=== PATIENT | female | born 1985 | race Caucasian/White ===

== ENCOUNTER 2016-09-03 13:45 | Inpatient (IN) | payer OTHER ==
[~2016-09-03] VITALS: Ht 165.1 cm; Wt 79.4 kg
[~2016-09-03 13:45] MED LIST: PRILOSEC OTC20 M1 PO
[2016-09-03 15:22] LABS: ABSOLUTE EOSINOPHIL COUNT 0 /CUMM (0.0-0.7); ABSOLUTE GRANULOCYTE CT 12.1 /CUMM (1.4-6.5); ABSOLUTE MONOCYTE COUNT 1.1 /CUMM (0.10-0.60); HEMATOCRIT 40.8 % (37-47); MEAN CORPUSCULAR HGB 30.5 PG (27.0-31.0); MEAN CORPUSCULAR VOLUME 92.3 FL (81.0-99.0); PLATELET COUNT 196 /CUMM (130-400); RBC DISTRIBUTION WIDTH 13.5 % (11.5-14.5); RED BLOOD CELL CT 4.42 /CUMM (4.20-5.40); WHITE BLOOD CELL COUNT 15.3 /CUMM (4.8-10.8)
[2016-09-03 15:24] LABS: ABSOLUTE BASOPHIL COUNT 0 /CUMM (0.0-0.2); BASOPHIL % 0.3 % (0.0-2.0); EOSINOPHIL % 0.1 % (0-5)
[2016-09-03] MEDS ORDERED: PRENATAL TABLE1 EAC2 PO (15:59)
--- NOTE | 2016-09-03 16:13 | History & Physical ---
General Information and HPI MD Statement: I have seen and personally examined NEEMA TOMPKINS and documented this H&P. The patient is a 30 year old female at [39] weeks and [2] days gestation who presented with a chief complaint of [onset of labor]. Source of Information: patient, old records Exam Limitations: no limitations History of Present Illness: 30 YO, LMP 12/02/2016 BALA 09/08/2016 IS ADMITTED 39 2/7 IN ACTIVE LABOR. NO SROM NO VAGINAL BLEEDING + GFM ISSUES FOR THIS : 1.) interstiial cystitis - DR Scott urologist 2.) Carecare worker - parvo NON-Immune 3.) Gr b str + 4.) Pertussus side-effect "seizures" Allergies/Medications Allergies: Coded Allergies: Pertussis Vaccines (Severe, 09/03/16) Home Med list Omeprazole Magnesium (Prilosec Otc) 20 MG TABLET. 1 TAB PO QDAY GASTRITIS Vit No.130/Iron/FA ( Tablet) 27 MG IRON-800 MCG TABLET 1 TAB PO DAILY vitamin support (Reported) Compliance With Home Meds: GOOD Past History box toe cutter History : 1 Para: 0 Last Menstrual Period: 12/02/2016 Estimated Delivery Date: 09/08/2016 Past box toe cutter History: none Medical History Blood Transfusion Hx: No Neurological: NONE EENT: sinus headaches Cardiovascular: NONE Respiratory: NONE Gastrointestinal: NONE Hepatic: NONE Renal: INTERSTITIAL CYSTITIS Musculoskeletal: NONE Psychiatric: NONE Endocrine: NONE Blood Disorders: NONE Cancer(s): NONE TRAIN ENGINEER/Reproductive: NONE Surgical History Pertinent Surgical History: N Past Family/Social History Family History Relations & Conditions if any Relation not specified for: *No pertinent family history Psychosocial History Where do you live? Home Who Do You Live With? spouse Primary Language: Nauruan Smoking Status: Never Smoked ETOH Use: denies use Illicit Drug Use: denies illicit drug use Review of Systems Review of Systems: Neg for carg\\diac, Pulmonary GI complaints Exam & Diagnostic Data Last 24 Hrs of Vital Signs/I&O T Max 98.6 P 84 R16 BP 128/72 P02 99% RA Intake & Output 09/03 1600 03/10 0800 09/03 0000 Intake Total Output Total Balance Patient 175 lb Weight Obstetric Exam Wgt Gained During : 38 Pelvimetry: should be adequate for avge sized baby Dilation (cm): 5 Effacement (%): 100 Station: 0 Membranes: intact Fluid: unknown Fundal Height (cm): 38 Multiple Gestation? No Contractions: Q 2-3 Infant #1 - FHR Baseline: 14 Category: 1 Estimated Weight: 7# 6oz Presentation: VTX Patient for Induction? No León Score León Score Response Value Cervix Position: mid-position 1 Cervix Consistency: soft 2 Cervix Effacement: >80% 3 Cervix Dilation: >5 cm 3 Cervix Station: +1,+2 3 Total 12 Physical Exam General Appearance Alert, Oriented X3, Cooperative, Moderate Distress Skin No Significant Lesion Cardiovascular Regular Rate Lungs Normal Air Movement Abdomen Normal Bowel Sounds, Soft, No Tenderness, No Hepatospenomegaly, Fundal Height 38 cm EFWt 7#6oz FHR 140's Cat I uterus nontender Neurological Normal Gait, Normal Speech Extremities No Tenderness/Swelling Reproductive (FEMALE) Normal female genitalia Labs Blood Type & Rh: A + Antibody Screen: N Hct/Hgb & Platelets #1: 13/38.9 240,000 Hct/Hgb & Platelets #2: 11.3/35.2 229,000 Rubella: IMM VDRL #1: N VDRL #2: N HbsAg: N HIV #1: N HIV #2 N 1 Hr P 3 Hr PG: N/A Group B Strep: POS Initial Ultrasound: 01/29/2016 S=D=U/S @ 8 / Anatomy Ultrasound: 04/22/2017 S=D=U/S @ 20 WKS NL ANATOMYPOST PLAC 3 VC, MALE Ultrasound for EFW: 08/25/2016 S=D=U/S 45% 7# Genetic Testing: DECLINED ALL TESTING Last 24 Hrs of Labs/Miguel: Laboratory Tests 09/03/16 1449: CBC w Diff NO MAN DIFF REQ, RBC 4.42, MCV 92.3, MCH 30.5, RDW 13.5, MPV 9.0, Gran % 79.0 H, Lymphocytes % 13.4 L, Monocytes % 7.2, Eosinophils % 0.1, Basophils % 0.3, Absolute Granulocytes 12.1 H, Absolute Lymphocytes 2.0, Absolute Monocytes 1.1 H, Absolute Eosinophils 0, Absolute Basophils 0, PUBS MCHC 33.0 09/03/16 1400: Urine Color YEL, Urine Clarity CLEAR, Urine pH 6.0, Ur Specific [place] 1.010, Urine Protein NEG, Urine Ketones NEG, Urine Nitrite NEG, Urine Bilirubin NEG, Urine Urobilinogen 0.2, Ur Leukocyte Esterase TRACE H, Ur Microscopic SEDIMENT EXAMINED, Urine WBC RARE, Ur Epithelial Cells FEW, Urine Bacteria FEW H, Urine Hemoglobin NEG, Urine Glucose NEG Assessment/Plan Assessment/Plan: IUP @ 39 2/7 IN ACTIVE LABOR- NL SIZED BABY. GOOD PROGRESS TO 5 CM. CAT 1 FHR GR B STR + PLAN IVF, PCN PROTOCAL, EPIDURAL ANTICIPATE As Ranked By This Provider Problem List: 1. 2. Active labor at term 3. Group B streptococcal carriage complicating Core Measures/Miscellaneous Venous Thromboembolism VTE Risk Factors: / VTE Contraindications: Active Bleeding (FALL RISK) VTE Diagnosis: No Beta Nestor Is Beta Nestor a Home Med? No If No, Why Not? N/A Antibiotics Is Patient on Antibiotics? Yes If Yes: prophylaxis Attending MD Review Statement Attending Statement Attending MD Statement: examined this patient, discussed with family, reviewed EMR data (avail), discussed w/nursing Attending Assessment/Plan: Savi JAUREGUI MD
--- NOTE | 2016-09-04 00:40 | Labor & Delivery Summary ---
Delivery Summary Vaginal Delivery: Vaginal: VACUUM ASSIST X3 (NO POP OFF) CTXN TO THEN VERTEX SPONTANEOUS Episiotomy/Lacerations: Episiotomy/Lacerations: EPISIOTOMY Type: MIDLINE PARTIAL 3RD DEGREE Repair: 3-0 VICRYL Anesthesia: EPIDURAL / LOCAL Placenta: Placenta: spontanteous, normal, 3 vessel Anesthesia: EPIDURAL Cord PH Value: ART 7.10 PCO2 28, PO2 26, HCO3 8.5, BE -19.8 HOLLY 7.14 PCO2 37, PO2 28, HCO3 12, BE -15.9 Baby's Weight: Male Doug Wylie 8#2oz 3670 gms Apgars - 1 Min: 9 Apgars - 5 Min: 9 Additional Comments: Pt progressed well to fully dilated, at 22:23. FHR @ that time was baseline 130- 140 with accellerations to 150 to 160 BPM. The patient stated that she was experiencing rectal pressure, after she was noted to be fully dilated, so pt began pushing soon after. With initial pushing, FHR now had a baseline ranging from 140's to 150' with average variability, moderate variable decells to 70 to 110, lasting 40 to 65 seconds, then overshoot to 160 to 170 bpm. After 23:10, we had a raising baseline to 160- 170's with elevations into the 180's. Variable decellerations remained in the severe category and were occuring with each contraction. (Pt had been maintained w/ O2 by mask, hip wedge and periodic IVF boluses during the end of the 1st stage of labor and through out the second stage of labor.) Pediatric coverage was called to come in for the delivery and anesthesia was alerted to come to the unit. The VTX had a large caput that was distending the introutis with pushing- bony VTX remaining @ +2/ +3 station. Pt was beoming frustrated and exhausted. @ 23:30 once BRANDON Mcduffie, was persent in the room, I discussed with the patient and her family that we needed to expedite the delivery by using a vaccum extractor. Pt preferred to try to avoid cesarian section, and was willing to try a vacuum assist. She was informed of and agreed to an episiotomy. (C/S room was already set up, in case a cesarian delivery was needed). With the next 3 contractions the vacuum was applied to the vertex, and pressure was applied. NO Pop-offs occurred. The pressure of the vaccum was released betwwen the contractions. Caput was . second degree midline episiotomy was cut, after infiltration with local anesthetic. Pt was then urged to push even more forcefully. Pt then had a of a LV male infant @ 23:41. second degree episiotomy had a partial 3rd degree extension with the delivery. No nuchal cord, no shoulder dystocia @ delivery. Terminal mec was noted as the lower torso was delivered. Baby had cord clamped and cut and the baby was handed to the TONSORIAL ARTIST. WT 8#2oz, 3670gms APGARs 9/9/9. Anesthesia topped off the epidural, local anesthetic was injection into the perineal area. Layered repair of the partial 3rd degree episiotomy and extension was undertaken. No vaginal or cervical lacerations. Placenta spontaneously delivered intact NL configuration 3 VC @ 23:43. NO PP uterine atony Correct needle and instrument counts, sponge count correct and scanned appropriately. EBL 450 ml Doug Wylie RH + Immune pH Art 7.10 (Hco3 3.5, BE -19.8) pH Holly 7.14 (hco3 12, BE -15.9) Sidra Reid MD
[2016-09-04 04:57] VITALS: BP 110/64
[2016-09-04 09:06] LABS: ABSOLUTE BASOPHIL COUNT 0 /CUMM (0.0-0.2); ABSOLUTE EOSINOPHIL COUNT 0 /CUMM (0.0-0.7); ABSOLUTE GRANULOCYTE CT 18.7 /CUMM (1.4-6.5); ABSOLUTE LYMPH COUNT 1.9 /CUMM (1.2-3.4); ABSOLUTE MONOCYTE COUNT 1.6 /CUMM (0.10-0.60); BASOPHIL % 0.2 % (0.0-2.0); EOSINOPHIL % 0 % (0-5); GRANULOCYTE % 84.2 % (42.2-75.2); MEAN CORPUSCULAR HGB 30.6 PG (27.0-31.0); MEAN CORPUSCULAR HGB CONC 33.3 G/DL (33.0-37.0); MEAN PLATELET VOLUME 9.4 FL (7.4-10.4); PLATELET COUNT 171 /CUMM (130-400); RBC DISTRIBUTION WIDTH 13.8 % (11.5-14.5); RED BLOOD CELL CT 4.02 /CUMM (4.20-5.40); WHITE BLOOD CELL COUNT 22.2 /CUMM (4.8-10.8)
[2016-09-04] MEDS ORDERED: DOCUSATE SODIU100 M3 PO (09:10)
[2016-09-04] MEDS ORDERED: IBUPROFEN800 M1 PO (09:10)
--- NOTE | 2016-09-04 10:01 | PN- Post Delivery/GYN ---
Subjective Subjective: Overall is doing well- is generally sore- no severe pain. Voiding fine. No heavy lochia. Baby not latching well this am, discussed w/ pt - best to leave the circumcision until in the am Review of Systems: Neg for cardiac, pulmonary GI complaints Objective Last 24 Hrs of Vital Signs/I&O TMax 100.0 now 99.1 VSS Vital Signs Date Time Temp Pulse Resp B/P Pulse O2 O2 Flow FiO2 Ox Delivery Rate 09/04 0457 110/64 Physical Exam General Appearance Alert, Oriented X3, Cooperative, No Acute Distress Skin No Significant Lesion Cardiovascular Regular Rate Lungs Normal Air Movement Abdomen Normal Bowel Sounds, Soft, No Tenderness, No Hepatospenomegaly, Uterus fundus firm 2 FB below umbilicus, nontender Neurological Normal Gait, Normal Speech Extremities No Tenderness/Swelling Pelvic (FEMALE) Appearance Normal, Perinuem intact no bruising Current Medications: Current Medications Sig/Asad Start time Last Medication Dose Route Stop Time Status Admin Acetaminophen 650 MG Q4P PRN 09/04 0045 AC PO Acetaminophen 1,000 MG ONCE ONE 09/03 2114 DC 09/03 N/A 1 UNIT IV 09/03 Bupivacaine HCl 20 ML ONCE ONE 09/04 0045 DC 09/04 SC 09/04 0046 0010 Bupivacaine HCl 10 ML .STK-MED ONE 09/03 2342 DC EPID 09/03 2343 Bupivacaine HCl 10 ML .STK-MED ONE 09/03 1703 DC EPID 09/03 1704 Butorphanol Tartrate 1 MG Q4P PRN 09/03 1545 CAN IV Butorphanol Tartrate 1 MG Q4P PRN 09/03 1545 DC 09/03 IV 1538 Docusate Sodium 100 MG BID 09/04 0032 AC PO Hydroxyzine HCl 100 MG AT BEDTIME NEED.. 09/04 0045 AC PO Ibuprofen 800 MG Q6P PRN 09/04 0045 AC 09/04 PO 0818 Ketorolac 30 MG ONCE ONE 09/04 0045 DC 09/04 Tromethamine IV 09/04 0046 0110 Ketorolac 30 MG .STK-MED ONE 09/03 1704 DC Tromethamine IM 09/03 1705 Lactated Ringer's 1,000 ML Q8H 09/03 1500 DC 09/03 IV 1751 Magnesium Hydroxide 30 ML DAILY PRN 09/04 0045 AC PO 09/04 1001 Oxycodone/ 1 TAB Q3P PRN 09/04 0045 AC Acetaminophen PO Oxytocin 20 UNITS Q5H 09/04 0045 DC 09/03 Lactated Ringer's 1,000 ML IV 09/04 0544 2345 Oxytocin 20 UNITS .STK-MED ONE 09/03 1704 DC IV 09/03 1705 Penicillin G 2.5 MU Q4H 09/03 1930 DC 09/03 Potassium IV 1900 Dextrose/Water 100 ML Penicillin G 5 MU ONCE ONE 09/03 1500 DC 09/03 Potassium IV 09/03 1529 1454 Dextrose/Water 100 ML Last 24 Hrs of Labs/Miguel: Laboratory Tests 09/04/16 0645: WBC 22.2, HGB 12.3, HCT 37, PLTS 171,000 Man diff pending 09/03/16 1449: CBC w Diff NO MAN DIFF REQ, RBC 4.42, MCV 92.3, MCH 30.5, RDW 13.5, MPV 9.0, Gran % 79.0 H, Lymphocytes % 13.4 L, Monocytes % 7.2, Eosinophils % 0.1, Basophils % 0.3, Absolute Granulocytes 12.1 H, Absolute Lymphocytes 2.0, Absolute Monocytes 1.1 H, Absolute Eosinophils 0, Absolute Basophils 0, PUBS MCHC 33.0 09/03/16 1400: Urine Color YEL, Urine Clarity CLEAR, Urine pH 6.0, Ur Specific [place] 1.010, Urine Protein NEG, Urine Ketones NEG, Urine Nitrite NEG, Urine Bilirubin NEG, Urine Urobilinogen 0.2, Ur Leukocyte Esterase TRACE H, Ur Microscopic SEDIMENT EXAMINED, Urine WBC RARE, Ur Epithelial Cells FEW, Urine Bacteria FEW H, Urine Hemoglobin NEG, Urine Glucose NEG Microbiology 09/03 1630 URINE ROUT: Urine Culture - RES Assessment/Plan Assessment/Plan Stable PPD #1 Doing well- WBC elevated- will follow her temps Circ permit done- Routine PP care Sidra Reid MD Problem List: 1. Active labor at term 2. Group B streptococcal carriage complicating 3. Term of male 4. Labor and delivery complicated by stress 5. Status post vacuum-assisted vaginal delivery 6. (spontaneous vaginal delivery)
--- NOTE | 2016-09-05 12:32 | PN- Post Delivery/GYN ---
Subjective Subjective: Feeling better today. Ready to go home after post circumcision diaper change. Has hab 2 BM so far- no issues/ problems Review of Systems: Neg for Cardiac Pulmonary GI complaints Objective Last 24 Hrs of Vital Signs/I&O Afebrile VSS Physical Exam General Appearance Alert, Oriented X3, Cooperative, No Acute Distress Skin No Significant Lesion Cardiovascular Regular Rate Lungs Normal Air Movement Abdomen Normal Bowel Sounds, Soft, No Tenderness, No Hepatospenomegaly, Uterus firm nontender - 2 FB below umbilicus Neurological Normal Gait, Normal Speech Extremities No Tenderness/Swelling Reproductive (FEMALE) Normal female genitalia, Perineum intact no bruising not swollen avge lochia Current Medications: Current Medications Sig/Asad Start time Last Medication Dose Route Stop Time Status Admin Acetaminophen 650 MG Q4P PRN 09/04 0045 AC PO Docusate Sodium 100 MG BID 09/04 0032 AC 09/05 PO 1017 Hydroxyzine HCl 100 MG AT BEDTIME NEED.. 09/04 0045 AC PO Ibuprofen 800 MG Q6P PRN 09/04 0045 AC 09/05 PO 1137 Oxycodone/ 1 TAB Q3P PRN 09/04 0045 AC Acetaminophen PO Assessment/Plan Assessment/Plan Stable PPD#2 Discharge home Rx - given stool softeners x 2 wks f/up 2 and 6 wks Problem List: 1. Active labor at term 2. Group B streptococcal carriage complicating 3. Term of male 4. Labor and delivery complicated by stress 5. Status post vacuum-assisted vaginal delivery 6. (spontaneous vaginal delivery) Attending MD Review Statement Attending Statement Attending MD Statement: examined this patient, discussed with family, reviewed EMR data (avail), discussed with nursing Attending Assessment/Plan: Savi Reid MD
== END 2016-09-05 14:45 | DRG 775 ==
LOC: CBCO 13:45 → GNO 14:15 → CBCO 09-08 08:00
PROVIDERS: ADMIT Obstetrics & Gynecology
PROC: 0DQR0ZZ Repair Anal Sphincter, Open Approach (ICD-10-PCS; principal; 2016-09-03)
PROC: 10D07Z6 Extraction of Products of Conception, Vacuum, Via Natural or Artificial Opening (ICD-10-PCS; principal; 2016-09-03)
DX: O76 Abnormality in fetal heart rate and rhythm complicating labor and delivery (principal); O70.20 Third degree perineal laceration during delivery, unspecified; O99.824 Streptococcus B carrier state complicating childbirth; Z37.0 Single live birth; Z3A.39 39 weeks gestation of pregnancy
CPT/HCPCS: GNOP; GNOS; 81001; 87086; 88307; G0463; J0131; J0595; J1885; J7120